=== PATIENT | female | born 1975 | race Caucasian/White ===

== ENCOUNTER 2017-08-17 14:17 | Inpatient (IN) | payer BC, OTHER ==
[~2017-08-17] VITALS: Ht 162.6 cm; Wt 70.3 kg
--- NOTE | ~2017-08-17 | HC ---
[facility] [place] [address] CONSULTATION Name: SHYAM HENRY TYLER Room #: 417-I ADM IN M.R.#: [id number] Admission: 08/17/17 Attend Phys: Eugene Wang MD Discharge: Date of : 71 Report #: [id number] THIS REPORT FOR: //name// CC: Leonel Wang REASON FOR CONSULTATION: I was asked to evaluate concerning pyelonephritis. HISTORY OF PRESENT ILLNESS: The patient was a 41-year-old admitted on 08/17/2017 with fever, myalgias, arthralgias, low back pain and shortness of breath, had progressed over about a 5-day period. Mild nausea, no dysuria or frequency. No cough or sputum production. She presented to the Emergency Room on this date, where CT scan showed no evidence of significant pulmonary disease. She had some atelectasis in the left base. Urinalysis, however, showed pyuria and bacteriuria with urine culture ultimately revealing Klebsiella pneumoniae that was resistant to ampicillin, Bactrim and tetracycline. Initially treated with Zosyn, then switched to ceftriaxone. Over the last 24 hours, although she has been afebrile, she has had more abdominal bloating and low back pain. Because of this, a CAT scan of the abdomen and pelvis was performed, which showed evidence of left pyelonephritis with some slight changes on the right as well with no ureteral disease evident. There was no obstruction. She is post-hysterectomy but did have ovarian cyst evident on the left. She also has diverticulosis and some atherosclerotic disease in her aorta. The patient has had a previous pyelonephritis about 6 years ago. She does not remember which side. ALLERGIES: SULFA, HYDROCODONE. MEDICATIONS: Prior to admission, Pepcid and Lexapro. PAST MEDICAL HISTORY: Depression, anxiety, hysterectomy, lumpectomy, bunionectomy, tubal , diverticulosis and diverticulitis, pyelonephritis. FAMILY HISTORY: Noncontributory. SOCIAL HISTORY: She is a past smoker, does drink alcohol. No HIV risk factors. REVIEW OF SYSTEMS: As noted above with no rash vaginal discharge. She had a stool yesterday. No vomiting. No pleuritic chest pain, cough or sputum production currently. PHYSICAL EXAMINATION: VITAL SIGNS: Afebrile, hemodynamically stable. GENERAL: Alert, cooperative and pleasant, in no acute distress. HEENT: Unremarkable. [address] [address] CONSULTATION Name: SHYAM HENRY TYLER Room #: 417-I [facility].#: [id number] Admission: 08/17/17 Attend Phys: Eugene Wang MD Discharge: Date of : 71 Report #: [id number] NECK: Supple. LUNGS: Few crackles in the left base posteriorly. No consolidation. HEART: Regular, without murmur. ABDOMEN: Mild distention. Tender in the lower abdomen diffusely with CVA tenderness, left greater than right. EXTREMITIES: Unremarkable. LABORATORY STUDIES: Sodium 145, potassium 2.8, bicarbonate 24, creatinine 1. Liver function test normal. Alkaline phosphatase 133. Hemoglobin 10, platelet count 245,000, white count 16.9. Previous differential on admission, she had 14% bands. Urinalysis, pyuria and bacteriuria with urine culture showing Klebsiella as noted above. Blood cultures negative. Chest x-ray, left lower lobe atelectasis, confirmed on CAT scan of the chest. IMPRESSION AND PLAN: A 41-year-old with left pyelonephritis, associated ileus seems most likely cause of her abdominal distention. She is now her second day into treatment. We would recommend continuing bowel rest as needed and IV antibiotic therapy. Not unusual to have recurring fever or prolonged symptoms 72 hours or more. Would recommend repeating laboratory studies in the a.m. to include CBC with differential. <ELECTRONICALLY SIGNED> By: Navjot Bangura MD 08/20/17 1311 [id number] Navjot Bangura MD /nt
[2017-08-17 14:17] VITALS: BP 106/72
[~2017-08-17 14:17] MED LIST: APAP650 PO; CIPROFLOXACIN500 M1 PO; FLAGYL500 MG PO; LEXAPRO 10 MG T10 M1 PO; MAG-AL PLUS SUS30 ML PO; NORCO 5-325 TA1 EACH PO; PEPCID20 MG PO
[2017-08-17 16:06] LABS: HEMATOCRIT 35.7 % (37.0-47.0); HEMOGLOBIN 11.9 gm/dL (12.0-15.0); MCH 29.4 pg (26.0-34.0); MCHC 33.3 g/dL (28.0-37.0); MCV 88.2 fL (80.0-100.0); PLATELET COUNT 192 thou/uL (150-400); RBC 4.05 mil/uL (4.20-5.00); RDW 13.6 % (10.5-14.5); WBC 11.6 thou/uL (4.0-11.0)
[2017-08-17 16:16] LABS: CALCIUM 9.1 mg/dL (8.5-10.1); CREATININE 1.7 mg/dL (0.6-1.0)
[2017-08-17 16:21] LABS: ALBUMIN 2.5 g/dL (3.4-5.0); TOTAL BILIRUBIN 0.6 mg/dL (<0.1-1.0); TOTAL PROTEIN 7.3 g/dL (6.4-8.2)
[2017-08-17 16:23] LABS: POTASSIUM 2.9 mmol/L (3.5-5.1)
[2017-08-17 17:39] LABS: URINE BILIRUBIN NEGATIVE (Negative); URINE BLOOD 1+ (Negative); URINE CLARITY CLEAR; URINE COLOR YELLOW; URINE GLUCOSE-RANDOM* NEGATIVE (Negative); URINE KETONES NEGATIVE (Negative); URINE LEUKOCYTES 3+ (Negative); URINE NITRITE POSITIVE (Negative); URINE PROTEIN (DIPSTICK) 2+ (Negative); URINE UROBILINOGEN 0.2 E.U./dl (0.2-1.0)
[2017-08-17 17:54] LABS: BE(vivo) -5.3 mmol/L (-2 to +3); HCO3 18.4 mmol/L (22.0-26.0); PCO2 29.9 mmHg (35.0-45.0); PO2 73.7 mmHg (80.0-100.0); pH 7.408 (7.360-7.450); sO2 95.2 % (92.0-98.0)
[2017-08-17 17:57] LABS: CASTS None Seen /LPF (None Seen); CRYSTALS None Seen /LPF (None Seen); SQUAMOUS 4-10 Moderate /LPF (0-3); URINE RBC 3-10 Few /HPF (0-2); URINE WBC >25 Many /HPF (0-5)
[2017-08-17 18:23] LABS: ABSOLUTE NEUTROPHILS 9.9 thou/uL (1.4-8.2); TOXIC GRANULATION 1+
[2017-08-17 22:08] VITALS: BP 98/65
[2017-08-17 23:00] VITALS: BP 110/67
[2017-08-18 02:41] VITALS: BP 107/76
[2017-08-18 04:30] VITALS: BP 112/75
[2017-08-18 06:27] LABS: HEMATOCRIT 31.9 % (37.0-47.0); HEMOGLOBIN 10.6 gm/dL (12.0-15.0); MCH 29.5 pg (26.0-34.0); MCHC 33.2 g/dL (28.0-37.0); RBC 3.58 mil/uL (4.20-5.00); RDW 13.7 % (10.5-14.5); WBC 14.6 thou/uL (4.0-11.0)
[2017-08-18 06:33] LABS: CREATININE 1.1 mg/dL (0.6-1.0); POTASSIUM 3.2 mmol/L (3.5-5.1)
[2017-08-18 07:20] VITALS: BP 116/81
[2017-08-18 16:20] VITALS: BP 126/81
[2017-08-18 19:03] VITALS: BP 112/78
[2017-08-19 06:42] LABS: HEMATOCRIT 30.6 % (37.0-47.0); HEMOGLOBIN 10.2 gm/dL (12.0-15.0); MCH 29.8 pg (26.0-34.0); MCHC 33.3 g/dL (28.0-37.0); MCV 89.7 fL (80.0-100.0); RBC 3.41 mil/uL (4.20-5.00); RDW 14.2 % (10.5-14.5); WBC 16.9 thou/uL (4.0-11.0)
[2017-08-19 07:00] LABS: CALCIUM 8.2 mg/dL (8.5-10.1)
[2017-08-19 07:02] LABS: POTASSIUM 2.8 mmol/L (3.5-5.1)
[2017-08-19 07:09] VITALS: BP 152/99
[2017-08-19 15:30] VITALS: BP 145/99
[2017-08-19 19:05] LABS: URINE BILIRUBIN NEGATIVE (Negative); URINE BLOOD TRACE (Negative); URINE CLARITY CLEAR; URINE COLOR YELLOW; URINE GLUCOSE-RANDOM* NEGATIVE (Negative); URINE KETONES NEGATIVE (Negative); URINE LEUKOCYTES-REFLEX NEGATIVE (Negative); URINE NITRITE-REFLEX NEGATIVE (Negative); URINE PROTEIN (DIPSTICK) NEGATIVE (Negative); URINE SPECIFIC GRAVITY <= 1.005 (1.005-1.035); URINE UROBILINOGEN 0.2 E.U./dl (0.2-1.0)
[2017-08-19 20:00] VITALS: BP 130/87
[2017-08-20 05:29] VITALS: BP 134/90
[2017-08-20 06:38] LABS: HEMOGLOBIN 10.4 gm/dL (12.0-15.0); MCH 29.4 pg (26.0-34.0); MCHC 33.5 g/dL (28.0-37.0); MCV 87.7 fL (80.0-100.0); PLATELET COUNT 266 thou/uL (150-400); RBC 3.54 mil/uL (4.20-5.00); RDW 13.8 % (10.5-14.5); WBC 12.9 thou/uL (4.0-11.0)
[2017-08-20 07:10] VITALS: BP 144/101
[2017-08-20 07:53] LABS: ABSOLUTE NEUTROPHILS 8.9 thou/uL (1.4-8.2); METAMYELOCYTES 2 %; MYELOCYTES 2 %
[2017-08-20 10:42] LABS: CALCIUM 8.3 mg/dL (8.5-10.1); MAGNESIUM 1.8 mg/dL (1.8-2.4); POTASSIUM 3.3 mmol/L (3.5-5.1)
[2017-08-20 15:45] VITALS: BP 129/87
[2017-08-20 20:00] VITALS: BP 120/87
[2017-08-21 04:00] VITALS: BP 140/90
[2017-08-21 08:45] VITALS: BP 137/91
[2017-08-21 10:40] LABS: HEMATOCRIT 36.4 % (37.0-47.0); HEMOGLOBIN 12.1 gm/dL (12.0-15.0); MCH 29.3 pg (26.0-34.0); MCHC 33.3 g/dL (28.0-37.0); MCV 87.9 fL (80.0-100.0); RBC 4.14 mil/uL (4.20-5.00); RDW 13.9 % (10.5-14.5); WBC 13.8 thou/uL (4.0-11.0)
[2017-08-21 11:13] LABS: CALCIUM 9.3 mg/dL (8.5-10.1); MAGNESIUM 2.1 mg/dL (1.8-2.4); POTASSIUM 3.5 mmol/L (3.5-5.1)
[2017-08-21] MEDS ORDERED: CEFUROXIME500 MG PO ×2 (14:03→15:18)
[2017-08-21] MEDS ORDERED: MIRALAX17 GM PO (15:18)
[2017-08-21 15:24] VITALS: BP 137/91
[2017-08-21 16:34] VITALS: BP 137/91
== END 2017-08-21 16:03 | disposition home or self-care (01) | DRG 871 ==
LOC: ER 14:17 → EROBS 21:23 → 4E 21:23 → ENTRNSPT 08-21 15:42 → 4E 08-21 16:03
PROVIDERS: Emergency Medicine; Hospitalist; Internal Medicine; Nurse Practitioner Family; Specialist
DX: A41.9 Sepsis, unspecified organism (principal); E43 Unspecified severe protein-calorie malnutrition; N12 Tubulo-interstitial nephritis, not specified as acute or chronic; N17.9 Acute kidney failure, unspecified; K56.7 Ileus, unspecified; F32.9 Major depressive disorder, single episode, unspecified; R65.20 Severe sepsis without septic shock; K57.90 Diverticulosis of intestine, part unspecified, without perforation or abscess without bleeding; F41.9 Anxiety disorder, unspecified; I10 Essential (primary) hypertension; Z90.710 Acquired absence of both cervix and uterus; Z88.2 Allergy status to sulfonamides; Z87.891 Personal history of nicotine dependence; Z68.26 Body mass index [BMI] 26.0-26.9, adult; Z79.899 Other long term (current) drug therapy
CPT/HCPCS: 10084

== ENCOUNTER 2018-10-27 07:32 | Emergency (ER) | payer BC, OTHER ==
[~2018-10-27] VITALS: Ht 157.5 cm; Wt 68.0 kg
[~2018-10-27 07:32] MED LIST changes: +CEFUROXIME500 MG PO; +MIRALAX17 GM PO
[2018-10-27] MEDS ORDERED: FAMOTIDINE 20 M20 MG PO (07:41)
[2018-10-27] MEDS ORDERED: CRANBERRY200 MG PO (07:41)
[2018-10-27] MEDS ORDERED: PROBIOTIC1 EAC2 PO (07:41)
[2018-10-27] MEDS ORDERED: AMLODIPINE-BEN1 EAC1 PO (07:42)
[2018-10-27] MEDS ORDERED: CURCUMIN1 GM PO (07:43)
[2018-10-27] MEDS ORDERED: TART CHERRY E1000 MG PO (07:43)
[2018-10-27] MEDS ORDERED: HYDROXYCHLOROQ200 M1 PO (07:44)
[2018-10-27] MEDS ORDERED: VITAMIN D2000 UNIT PO (07:44)
[2018-10-27 08:34] LABS: URINE BILIRUBIN NEGATIVE (Negative); URINE BLOOD 1+ (Negative); URINE CLARITY SL CLOUDY; URINE COLOR YELLOW; URINE GLUCOSE-RANDOM* NEGATIVE (Negative); URINE KETONES NEGATIVE (Negative); URINE LEUKOCYTES-REFLEX 3+ (Negative); URINE NITRITE-REFLEX POSITIVE (Negative); URINE PROTEIN (DIPSTICK) NEGATIVE (Negative); URINE UROBILINOGEN 0.2 E.U./dl (0.2-1.0)
[2018-10-27 08:41] LABS: SQUAMOUS 4-10 Moderate /LPF (0-3)
[2018-10-27 08:42] LABS: BACTERIA-REFLEX >30 Many /HPF (None Seen); CASTS None Seen /LPF (None Seen); CRYSTALS None Seen /LPF (None Seen); MUCUS 0-3 Light strn/LPF (None Seen); URINE WBC-REFLEX >25 Many /HPF (0-5); WBC CLUMPS Moderate (None Seen)
[2018-10-27 09:24] LABS: ABSOLUTE NEUTROPHILS 7.2 thou/uL (1.4-8.2); BASOPHILS 0.1 % (0.0-2.0); HEMATOCRIT 38.1 % (37.0-47.0); HEMOGLOBIN 12.9 gm/dL (12.0-15.0); LYMPHOCYTES 5.7 % (24.0-44.0); MCH 30.4 pg (26.0-34.0); MCHC 33.9 g/dL (28.0-37.0); MCV 89.8 fL (80.0-100.0); MONOCYTES 4.8 % (1.0-8.0); PLATELET COUNT 285 thou/uL (150-400); POLYS 85.4 % (36.0-66.0); RBC 4.25 mil/uL (4.20-5.00); RDW 13.1 % (10.5-14.5); WBC 8.4 thou/uL (4.0-11.0)
[2018-10-27 09:27] LABS: CALCIUM 9.1 mg/dL (8.5-10.1); CREATININE 0.8 mg/dL (0.6-1.0); POTASSIUM 4.1 mmol/L (3.5-5.1)
[2018-10-27] MEDS ORDERED: KEFLEX500 M1 PO (09:56)
[2018-10-27] MEDS ORDERED: EPIPEN 2-P0.3 MG/0.3 IM (09:56)
[2018-10-27 10:07] VITALS: BP 116/69
== END 2018-10-27 10:24 | disposition home or self-care (01) ==
LOC: ER 07:32
PROVIDERS: Emergency Medicine
DX: L50.9 Urticaria, unspecified (principal); N39.0 Urinary tract infection, site not specified; M06.9 Rheumatoid arthritis, unspecified; Z90.710 Acquired absence of both cervix and uterus; Z88.2 Allergy status to sulfonamides; Z87.891 Personal history of nicotine dependence